=== PATIENT | male | born 2000 | race Caucasian/White ===

== ENCOUNTER 2022-01-16 16:44 | Emergency (ER) | payer OTHER, SELFPAY ==
--- NOTE | 2022-01-16 16:47 | ED.SKABFB ---
HPI - Skin/Abscess/Foreign Bdy General Chief complaint: Extremity Injury, Lower Stated complaint: Skin Sore/Right Knee Time Seen by Provider: 01/16/22 16:47 Source: patient, family and RN notes reviewed History of Present Illness HPI narrative: Patient is a 21-year-old male who presents the urgent care with his mother with complaints of right knee sore. Patient states that he noticed on Friday and is became more painful. Patient states that he tried to pop it yesterday and did get some yellow to green drainage. Patient states that the redness has increased. Denies of any fever, chills, nausea or vomiting. Patient states he has been cleaning it with peroxide and using Neosporin. No other acute complaints. No acute distress noted. Patient aware of the plan of care. Some parts of this dictation were generated by voice recognition software and may contain typographical and/or grammatical inaccuracies. Related Data Allergies Allergy/AdvReac Type Severity Reaction Status Date / Time No Known Allergies Allergy Verified 01/16/22 17:04 Review of Systems Review of Systems: CONSTITUTIONAL: Denies fever, chills, or sweats. EYES: Denies visual changes, redness, or discharge. ENT: Denies rhinorrhea, congestion, sore throat, or otalgia. CARDIOVASCULAR: Denies chest pain, palpitations, or edema. RESPIRATORY: Denies cough or dyspnea. GASTROINTESTINAL: Denies abdominal pain, nausea, vomiting, or diarrhea. GENITOURINARY: Denies dysuria or hematuria. SKIN: Reports of an infection to the right knee MUSCULOSKELETAL: Denies back pain, joint pain, or myalgia. NEUROLOGIC: Denies headache, numbness, or weakness. All other systems reviewed are negative, except as documented in HPI. PMFSH Comments At the time of my signature, I reviewed and agree with the nursing past medical, surgical, social, and family history. There is no relevant family history pertinent to the patient complaint. Exam Narrative: GENERAL: This is a well-nourished, well-developed patient, in no apparent distress. HEAD: normocephalic, atraumatic. EYES: PERRL. Sclera clear/white. Vision is grossly intact. EARS: External ears normal NOSE: External nose normal with no obvious nasal discharge, nares without redness, no rhinorrhea. THROAT: Mucous membranes moist NECK: Neck supple CARDIOVASCULAR: Regular rate and rhythm without murmurs, gallops, or rubs. RESPIRATORY: Clear to auscultation. Breath sounds equal bilaterally. No wheezes, rales, or rhonchi. SKIN: 5 x 3cm firm abscess with surrounding erythema to the right knee with moderate tenderness, 0.25 cm center lesion NEURO: awake, alert, and oriented to person, place and time. There were no obvious focal neurologic abnormalities. EXTREMITIES: Mild edema to the anterior right knee with erythema surrounding abscess extending slightly into the calf. Negative Homans' sign. Positive strong right pedal pulse with capillary refill less than 2 seconds. Course Course Level of Care: Express Care Visit Vital Signs Vital signs: Vital Signs Temperature 100 F H 01/16/22 16:51 Pulse Rate 94 01/16/22 16:51 Respiratory Rate 20 01/16/22 16:51 Blood Pressure 127/64 01/16/22 16:51 Pulse Oximetry 100 01/16/22 16:51 Temperature 100 F H 01/16/22 16:51 Pulse Rate 94 01/16/22 16:51 Respiratory Rate 20 01/16/22 16:51 Blood Pressure 127/64 01/16/22 16:51 Pulse Oximetry 100 01/16/22 16:51 Reviewed MDM - Skin/Abscess/Foreign Bdy MDM Narrative Medical decision making narrative: Advised patient to keep the area clean with plain Dial soap and water. No alcohol or peroxide to the wound. Use the prescription cream to the affected area as directed and keep it covered while at work. Otherwise the wound may stay open to air and is not at risk of being soiled. Complete the oral antibiotic regimen as prescribed. Be sure you eat and drink with the medications are you will have an upset stomach. If you develop any increase in
[2022-01-16 16:51] VITALS: BP 127/64; PULSE 94; RESP 20; TEMP 37.7; O2SAT 100
== END 2022-01-16 17:34 | disposition home or self-care (01) ==
PROVIDERS: Emergency Provider Nurse Practitioner Family
DX: L03.115 Cellulitis of right lower limb (principal)
CPT/HCPCS: 99203; G0463

== ENCOUNTER 2022-04-09 15:52 | Emergency (ER) | payer OTHER, SELFPAY ==
[2022-04-09 16:06] VITALS: BP 131/79; PULSE 74; RESP 14; TEMP 37.5; O2SAT 99
--- NOTE | 2022-04-09 16:37 | ED.GENADULT ---
HPI - General Adult General Chief complaint: Ear Stated complaint: Ear pain, discharge Source: patient Mode of arrival: ambulatory Limitations: no limitations History of Present Illness HPI narrative: Patient presents for evaluation of right-sided ear pain since of last week. He has muffled hearing and also feels like there is water in his ear. When he noted the sensation of water in the ear, he placed a Q tip in the ear but did not notice any fluid present. No fever, chills, nausea, vomiting, sore throat, other respiratory symptoms. 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 He does wear earplugs to try to reduce his risk to exposure. No recent sick contacts. No additional complaints or concerns. Related Data Allergies Allergy/AdvReac Type Severity Reaction Status Date / Time No Known Allergies Allergy Verified 04/09/22 16:16 Review of Systems Review of Systems: CONSTITUTIONAL: Denies fever, chills, or sweats. EYES: Denies visual changes, redness, or discharge. ENT: Reports right-sided ear pain with muffled hearing and sensation of water in the ear. Denies rhinorrhea, congestion, sore throat CARDIOVASCULAR: Denies chest pain, palpitations, or edema. RESPIRATORY: Denies cough or dyspnea. GASTROINTESTINAL: Denies abdominal pain, nausea, vomiting, or diarrhea. GENITOURINARY: Denies dysuria or hematuria. SKIN: Denies rash or itching. MUSCULOSKELETAL: Denies back pain, joint pain, or myalgia. NEUROLOGIC: Denies headache, numbness, dizziness, or weakness. PSYCHIATRIC: Denies anxiety or depression. 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 HEAD: Normocephalic, atraumatic. EYES: PERRLA and EOMI. ENT: Nares clear, no rhinorrhea or epistaxis. Mucous membranes moist. Oropharynx without tonsillar hypertrophy exudate or other lesions. There is a small perforation in the right tympanic membrane that is less than 5% of surface area. There is swelling noted to right ear canal. NECK: Supple. No adenopathy or masses. No carotid bruits or JVD CHEST: Clear to auscultation. No respiratory distress. No wheezes rales or rhonchi HEART: Regular rate and rhythm. No murmur heard. Normal peripheral pulses. ABDOMEN: Soft, nontender, nondistended, normal active bowel sounds. EXTREMITIES: Normal range of motion. No edema. SKIN: Warm, dry, no rash. NEURO: No focal deficits. Alert and oriented x3. PSYCH: Normal mood and affect. Course Course Emergency Course: This is a 21-year-old male that presented with reports of right-sided ear pain. On physical exam he has evidence of perforation of the tympanic membrane. It is unclear if this is from sticking a Q-tip in his ear, sun exposure or infection. We will treat with ofloxacin and Augmentin. He should follow-up with ENT. This should heal spontaneously based upon surface area. Pt in agreement with plan of care. Level of Care: Express Care Visit Vital Signs Vital signs: Vital Signs Temperature 37.5 C 04/09/22 16:06 Pulse Rate 74 04/09/22 16:06 Respiratory Rate 14 04/09/22 16:06 Blood Pressure 131/79 04/09/22 16:06 Pulse Oximetry 99 04/09/22 16:06 Oxygen Delivery Clare
== END 2022-04-09 16:40 | disposition home or self-care (01) ==
PROVIDERS: Emergency Provider Nurse Practitioner
DX: H72.91 Unspecified perforation of tympanic membrane, right ear (principal); K50.90 Crohn's disease, unspecified, without complications; F17.290 Nicotine dependence, other tobacco product, uncomplicated
CPT/HCPCS: 99213; G0463

== ENCOUNTER 2022-04-22 17:19 | Emergency (ER) | payer OTHER, SELFPAY ==
[2022-04-22 17:26] VITALS: BP 128/63; PULSE 77; RESP 16; TEMP 36.7; O2SAT 100
--- NOTE | 2022-04-22 17:32 | ED.SKABFB ---
HPI - Skin/Abscess/Foreign Bdy General Chief complaint: Skin/Abscess/Foreign Body Stated complaint: Skin Problem/Feet Time Seen by Provider: 04/22/22 18:04 Source: patient and RN notes reviewed Mode of arrival: ambulatory Limitations: no limitations History of Present Illness HPI narrative: 21-year-old male presents concern for itchy rash to both feet and ankles. He reports symptoms started 1 week ago. Reports he wears tall steel toe boots at work and his feet get very hot and sweaty. Reports he cleans his feet when he gets home, however the rash has not improved. He denies pain. Reports he is put Neosporin on the areas without relief. He denies any other rash. He reports the areas are very itchy MD complaint: rash Related Data Allergies Allergy/AdvReac Type Severity Reaction Status Date / Time No Known Allergies Allergy Verified 04/22/22 17:34 Review of Systems Review of Systems: CONSTITUTIONAL: Denies malaise, chills, sweats, or fever. EYES: Denies redness, or discharge. ENT: Denies rhinorrhea, congestion, swollen lips, swollen tongue CARDIOVASCULAR: Denies chest pain, palpitations, or edema. RESPIRATORY: Denies cough or dyspnea. GASTROINTESTINAL: Denies abdominal pain, nausea, vomiting SKIN: Reports itchy rash to both ankles and feet MUSCULOSKELETAL: Denies joint pain or myalgia. NEUROLOGIC: Denies headache. 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 There is no relevant family history pertinent to the presenting complaint Exam Narrative: GENERAL: Well-appearing, well-nourished, and in no acute distress. HEAD: Normocephalic, atraumatic. EYES: PERRLA, conjunctivae clear ENT: Mucous membranes moist. NECK: Supple. No lymphadenopathy CHEST: Clear to auscultation. No respiratory distress. HEART: Regular rate and rhythm. SKIN: Warm, dry. Use of erythematous plaque noted to bilateral inner ankles, outer ankles, toes, dorsal feet consistent with tinea NEURO: Alert and oriented x3. PSYCH: Normal mood and affect Course Course Emergency Course: Patient is aware of diagnosis, understands and agrees to treatment plan. Anticipatory guidance given. Patient agrees to follow-up as directed and is aware of reasons to seek care at the emergency department. Portions of this record may have been created with voice recognition software Level of Care: Express Care Visit Vital Signs Vital signs: Reviewed. MDM - Skin/Abscess/Foreign Bdy MDM Narrative Medical decision making narrative: Does not appear at this time to be erythema multiforme, bullous, SJS, TEN; no evidence at this time to suggest RMSF, endocarditis or Lyme disease; patient looks well, nontoxic and is tolerating oral intake; no neurologic signs or symptoms; no headache, photophobia or neck pain; afebrile; appropriate for initial outpatient treatment; discussed the importance of follow-up, patient agrees; question, viral exanthema, contact dermatitis, allergic dermatitis, eczema, urticaria, tinea. No soft palate or uvula edema, no tongue, lip edema or other mucosal involvement, no respiratory compromise, no stridor, no wheezing, no wheezing, no h
== END 2022-04-22 18:19 | disposition home or self-care (01) ==
PROVIDERS: Emergency Provider Nurse Practitioner; PCP Physician Assistant
DX: B35.3 Tinea pedis (principal); K50.90 Crohn's disease, unspecified, without complications; F17.290 Nicotine dependence, other tobacco product, uncomplicated
CPT/HCPCS: 99213; G0463

== ENCOUNTER 2022-09-20 15:43 | Emergency (ER) | payer OTHER, MEDICAID, SELFPAY ==
[2022-09-20 15:49] VITALS: BP 129/104; PULSE 67; RESP 16; TEMP 37.1; O2SAT 100
--- NOTE | 2022-09-20 15:54 | ED.GENADULT ---
HPI - General Adult General Chief complaint: Eye Problems Stated complaint: Welding Flash from work Time Seen by Provider: 09/20/22 15:50 Source: patient, RN notes reviewed and old records reviewed Mode of arrival: ambulatory Limitations: no limitations History of Present Illness HPI narrative: 22-year-old male presents to the [facility] with complaints of bilateral eye pain and redness. 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 Reports red eyes, constantly watering. Denies any significant change in vision. right, left andBoth eyes 20/40. patient is PERRLA. Related Data Allergies Allergy/AdvReac Type Severity Reaction Status Date / Time No Known Allergies Allergy Verified 09/20/22 15:58 Review of Systems Review of Systems: All systems reviewed & are unremarkable except as noted in HPI and below Constitutional: Constitutional: Reports no additional constitutional complaints Eyes: Eyes: Reports as per HPI ENT: Reports system reviewed and no additional complaints, except as documented Cardiovascular: Cardiovascular: Reports no additional cardiovascular complaints, Denies chest pain and Denies dyspnea Respiratory: Respiratory: Reports no additional respiratory complaints, Denies chest congestion, Denies cough and Denies dyspnea Gastrointestinal: Gastrointestinal: Reports no additional gastrointestinal complaints, Denies abdominal pain, Denies nausea and Denies vomiting Musculoskeletal: Musculoskeletal: Reports no additional musculoskeletal complaints Integumentary/Breasts: Skin/Breast: Reports system reviewed and no additional complaints, except as docu Neurologic: Reports system reviewed and no additional complaints, except as documented Psychiatric: Psychiatric: Reports no additional psychiatric complaints Allergic/Immunologic: Allergic/Immunologic: Reports no additional allergic/immunologic complaints [facility] Past Medical History Medical History Crohn's disease IBS (irritable bowel syndrome) Surgical History Surgical History History of facial surgery Family History Family History Mother No pertinent past medical history Social History Social History Smoking status: Current every day smoker Tobacco type: e-cigarettes/vaping Substance use: never 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 There is no relevant family history pertinent to the patient complaint. Exam Const: General: cooperative, healthy appearing, comfortable, no acute distress, well developed, alert and well nourished Nutritional Appearance: well nourished Orientation/consciousness: patient oriented x3 Limitations: no limitations HENMT: Head: normal to inspection Ears: hearing grossly normal bilaterally and external ears normal Face/Nose/Sinus: Normal external nose present, Normal nares present, Normal nasal mucous membranes and turbinates present and normal facial exam Face and sinus: normal facial exam Mouth: Yes Normal oral and palatal mucosa present, Yes lip normal and Yes moist mucous membranes Throat: posterior oropharynx normal and uvula midline Eyes: General: appearance normal, both eyes and all related structures Visual Pedroza: normal visual pedroza by confrontation Alignment and Position: alignment normal and position normal Periorbital: periorbital findings normal Eyelids: eyelids normal Conjunctivae: conjunctival abnormality bilateral conjunctival injection diffuse and discharge (clear); without subconjunctival hemorrhages Sclera: scleral abnormality bilateral without exudates, witho
[2022-09-20 15:59] VITALS: BP 129/104; PULSE 67; RESP 16; TEMP 37.1; O2SAT 100
== END 2022-09-20 16:39 | disposition home or self-care (01) ==
PROVIDERS: Emergency Provider Nurse Practitioner; PCP Physician Assistant
DX: H16.133 Photokeratitis, bilateral (principal); F17.210 Nicotine dependence, cigarettes, uncomplicated; K50.90 Crohn's disease, unspecified, without complications
CPT/HCPCS: 99213; G0463